=== PATIENT | male | born 1945 | race Caucasian/White ===

== ENCOUNTER 2022-12-15 11:18 | Outpatient (CLI) | payer OTHER, SELFPAY ==
--- OUTSIDE RECORDS SUMMARY | 2022-12-15 11:23 | XMS_ITS | Continuity of Care Document ---
Author Name Unknown Organization [facility] Address [address] [place] [address] Phone Care Team Providers [employer] Name Role Phone Luc Turcios MD Unavailable Unavailable Allergies, Adverse Reactions, Alerts Substance Reaction Status Criticality No Known Allergies Active No Inform ation Medications Medication Instructions Dosage Effective Dates (start - stop) Status Comments GABAPENTIN (unknown strength) Not Available - Active Procedures Procedure Date Office/Outpatient Visit,[facility] 2019 Advance Directives Directive Yes / No Effective Date File Name No Information Encounters Encounter Description Practice Location Reason(s) For Visit Diagnoses Date Provider Providers Copied on Encounter [facility], [address], [place], [place], [id number], [place] tel:[phone] No Information 0 Tam Calle. [facility], [address] [place] [address], [address], [place], [place], [id number] , [place]. [phone] Office/Outpat ient Visit,[facility], [address], [place], [place], [id number], [place] tel:[phone] [facility] - [place] Radiculopathy, lumbar regionSpinal stenosis, lumbar region with neurogenic claudicationPain in left hip 0 Panvica John. [facility], [address] [place] [address], [address], [place], [place], [id number] , [place]. tel:[phone] Referring Provider: Bao Lund, [place] [address], [place], [address]. tel:[phone] Family History Family Member Type Diagnosis Age At Onset No Information Payers Payer name Insurance type Covered constitution party ID Keith anna(s) [employer] [facility] 2021 [id number] Social History Type Description Quantity Date Captured Comments Sex Male Smoking Status No Information Chief Complaint And Reason For Visit No Information Reason For Referral Reason For Referral No Information History Of Present Illness Encounter Date Complaint History Of Prese nt Illness No Information Functional Status Date Functional Assessmen t No Information Instructions Date Instruction Additional Infor mation No Information Assessments Type Assessment Date No Information Patient Care Teams Name Effective Dates (start - stop) Status Members No Information
--- NOTE | 2022-12-15 12:00 | CRLHL7_ITS ---
For Patients: As a result of the Century Cures Act, medical imaging exams and procedure reports are released immediately into your electronic medical record. You may view this report before your referring provider. If you have questions, please contact your health care provider. INDICATION: Prostate cancer. TECHNIQUE: 27 millicuries of technetium-99m labeled MDP has been given intravenously. Three hour delayed whole-body bone scan images have been performed. FINDINGS: Asymmetric activity in the left cervical spine is identified. There is bilateral shoulder activity. Bilateral great toe activity is noted. Mild bilateral knee activity is noted. These findings are all likely degenerative. Photopenic bilateral hip arthroplasties are noted without significant abnormal uptake. There is bilateral function from both kidneys. IMPRESSION: No convincing evidence for skeletal metastases. Areas of benign uptake are identified most compatible with degenerative change. Dictated by Peng Mathews MD @ 12/17/2022 9:27:30 AM (Electronically Signed)
[2022-12-15 12:03] LABS: Creatinine* 0.9 mg/dL (0.5-1.5); Estimated Glomerular Filt Rate 89 ml/min
--- NOTE | 2022-12-15 13:00 | CRLHL7_ITS ---
For Patients: As a result of the Century Cures Act, medical imaging exams and procedure reports are released immediately into your electronic medical record. You may view this report before your referring provider. If you have questions, please contact your health care provider. CLINICAL INFORMATION: Prostate cancer. TECHNIQUE: Contrast-enhanced CT of the abdomen and pelvis was obtained. Coronal and sagittal reformatted images were obtained. Contrast: 94 mL of Omnipaque 350 intravenous contrast was injected uneventfully prior to image acquisition. Radiation Dose Estimate (Total Exam DLP): 643 mGy-cm. COMPARISON: None. FINDINGS: Lower Chest: Lung bases: Mild bibasilar dependent atelectatic changes. No focal airspace opacities or pleural effusions. Heart/Pericardium: Unremarkable. Abdomen/Pelvis: Liver: Unremarkable. Gallbladder: Unremarkable. Spleen: Unremarkable. Adrenal glands: Unremarkable. Kidneys: Unremarkable. Pancreas: Unremarkable. Lymph nodes: Evaluation of pelvic sidewall lymph node chains is limited due to streak artifact from hip prostheses. Otherwise no evidence of lymphadenopathy in the abdomen and pelvis. Vascular: Abdominal aorta normal in caliber. Bowel: No bowel obstruction. Normal appendix in the right lower quadrant. Colonic diverticula. Urinary bladder: Limited evaluation due to underdistention. No gross pathology. Reproductive structures: Enlarged prostate. Evaluation limited due to streak artifact from bilateral hip prostheses. No abdominal/pelvis ascites or free intraperitoneal air. Musculoskeletal: Status post bilateral hip arthroplasties. No focal lytic or blastic lesions are identified. Visualized osseous structures demonstrate diffuse degenerative changes. IMPRESSION: 1. No evidence of metastatic disease in the abdomen and pelvis. 2. Enlarged prostate. Evaluation otherwise limited due to streak artifact from hip prostheses. Please note that all CT scans at this facility use dose modulation, iterative reconstruction, and/or weight-based dosing when appropriate to reduce radiation dose to as low as reasonably achievable. Dictated by Paulo Nicolas MD @ 12/16/2022 7:06:48 AM (Electronically Signed)
== END 2022-12-15 11:19 | disposition home or self-care (01) ==
PROVIDERS: Visit Provider Urology
DX: C61 Malignant neoplasm of prostate (principal); N40.0 Benign prostatic hyperplasia without lower urinary tract symptoms
CPT/HCPCS: 36415; 74177; 78306; 82565; A9503; Q9967